=== PATIENT | female | born 1995 | race Caucasian/White ===

== ENCOUNTER → 2019-01-09 | Outpatient (CLI) | payer OTHER, SELFPAY ==
[2019-01-09 07:58] VITALS: BMI 22.5
== END | disposition home or self-care (01) ==
LOC: LABSPEC 15:15
PROVIDERS: Referring Provider Physician Assistant Surgical; Visit Provider Physician Assistant Surgical
DX: J02.9 Acute pharyngitis, unspecified (principal)
CPT/HCPCS: 87070